=== PATIENT | male | born 1975 | race African-American/Black ===

== ENCOUNTER 2017-12-29 14:59 | Emergency (ER) | payer OTHER ==
[~2017-12-29] VITALS: Ht 165.1 cm; Wt 73.9 kg
[2017-12-29 15:14] VITALS: TEMP 97.9
[2017-12-29 18:45] VITALS: BP 132/68
== END 2017-12-29 18:45 | disposition home or self-care (01) ==
LOC: ED 14:59
DX: S20.212A Contusion of left front wall of thorax, initial encounter (principal)
CPT/HCPCS: 99282

== ENCOUNTER 2018-01-13 12:39 | Emergency (ER) | payer OTHER ==
[~2018-01-13] VITALS: Ht 165.1 cm; Wt 55.3 kg
[2018-01-13 13:14] LABS: PLATELET COUNT 176 K/uL (142-355)
[2018-01-13 13:29] LABS: POTASSIUM 3.9 mmol/L (3.6-5.2)
[2018-01-13 14:38] VITALS: BP 132/80; TEMP 97
== END 2018-01-13 15:16 | disposition home or self-care (01) ==
LOC: ED 12:39
PROVIDERS: Family Medicine
DX: E11.65 Type 2 diabetes mellitus with hyperglycemia (principal)
CPT/HCPCS: 80053; 81000; 85027; 99284; J1815